=== PATIENT | female | born 1990 | race Caucasian/White ===

== ENCOUNTER 2017-07-23 01:26 | Emergency (ER) | payer OTHER ==
[~2017-07-23] VITALS: Ht 162.6 cm; Wt 108.9 kg
[2017-07-23 04:23] VITALS: BP 148/78
== END 2017-07-23 04:00 | disposition home or self-care (01) ==
LOC: ED 01:26
DX: J45.901 Unspecified asthma with (acute) exacerbation (principal); J40 Bronchitis, not specified as acute or chronic
CPT/HCPCS: J2930; J7613; J7644

== ENCOUNTER 2018-08-17 01:31 | Emergency (ER) | payer OTHER ==
[~2018-08-17] VITALS: Ht 160 cm; Wt 117.9 kg
[2018-08-17 02:12] VITALS: Ht 160 cm; Wt 117.9 kg
[2018-08-17 03:03] VITALS: BP 152/87
== END 2018-08-17 03:03 | disposition home or self-care (01) ==
LOC: ED 01:31
DX: S93.601A Unspecified sprain of right foot, initial encounter (principal); J45.909 Unspecified asthma, uncomplicated; X50.1XXA Overexertion from prolonged static or awkward postures, initial encounter; Y93.89 Activity, other specified; Y92.89 Other specified places as the place of occurrence of the external cause; Y99.8 Other external cause status

== ENCOUNTER 2018-09-27 18:24 | Emergency (ER) | payer MEDICAID ==
[~2018-09-27] VITALS: Ht 160 cm; Wt 117.0 kg
[2018-09-27 18:33] VITALS: Ht 160 cm; Wt 117.0 kg
[2018-09-27 19:59] VITALS: BP 156/96
== END 2018-09-27 19:59 | disposition home or self-care (01) ==
LOC: ED 18:24
DX: J45.901 Unspecified asthma with (acute) exacerbation (principal)
CPT/HCPCS: J7512; Q0092

== ENCOUNTER 2019-05-20 21:17 | Emergency (ER) | payer OTHER ==
[~2019-05-20] VITALS: Ht 160 cm; Wt 118.4 kg
[2019-05-20 21:20] VITALS: Ht 160 cm; Wt 118.4 kg
[2019-05-21 00:05] VITALS: BP 147/82
== END 2019-05-21 00:05 | disposition home or self-care (01) ==
LOC: ED 21:17
DX: S06.0X0A Concussion without loss of consciousness, initial encounter (principal); J45.909 Unspecified asthma, uncomplicated; W22.8XXA Striking against or struck by other objects, initial encounter; Y93.89 Activity, other specified; Y92.89 Other specified places as the place of occurrence of the external cause; Y99.8 Other external cause status
CPT/HCPCS: 90715